=== PATIENT | female | born 1985 | race Caucasian/White ===

== ENCOUNTER 2022-05-04 08:09 | Inpatient (IN) | payer OTHER, MEDICAID ==
[2022-05-04] MEDS ORDERED: Boostrix 0.5 ML (Tdap) VIAL (>/=7 yrs of age) ONE (08:47)
[2022-05-04 09:04] LABS: #Basophils 0.1 thou/uL (0.0-0.2); #Eosinphils 0.1 thou/uL (0.0-0.7); #Lymphocytes 1.9 thou/uL (1.20-3.40); #Monocytes 0.3 thou/uL (0.11-0.59); #Neutrophils 9.9 thou/uL (1.40-6.50); %Basophils 0.7 % (0.0-1.0); %Eosinophils 0.8 % (0.0-10.0); %Lymphocytes 15.5 % (21.0-51.0); %Monocytes 2.7 % (0.0-10.0); %Neutrophils 80.3 % (42.0-75.0); Hemoglobin 15.9 g/dL (12.0-16.0); Mean Corpuscular HGB CONC 34.4 g/dL (32.0-36.0); Mean Corpuscular Volume 98.6 fL (78.0-98.0); Mean Platelet Volume 9.6 fL (7.4-10.4); Platelet Count 148 thou/uL (130-400); RBC Distribution Width 12.2 % (11.5-14.5); Red Blood Cell (RBC) Count 4.69 mill/uL (4.20-5.40); White Blood Cell (WBC) Count 12.3 thou/uL (4.8-10.8)
[2022-05-04 09:22] LABS: BHCG - Serum Negative (NEGATIVE); Pregs Control Background? CLEAR/WHITE (CLR/WHITE); Pregs Control Bar Appear? YES (CONTROL BAR)
[2022-05-04 09:26] LABS: ALT (SGPT) 261 U/L (8-55); AST (SGOT) 591 U/L (5-34); Acetaminophen Less than 10.0 mcg/mL (10.0-30.0); Albumin 4.2 g/dL (3.5-5.0); Alcohol Less than 10 mg/dL (Less than 10); Alkaline Phosphatase 101 U/L (40-110); Anion Gap 23 mmol/L (10-20); BUN (Urea Nitrogen) 10 mg/dL (7.0-18.7); Bilirubin, Total 0.8 mg/dL (0.2-1.2); CK (CPK) 218 U/L (29-168); Calc. Creatinine Clearance 0 mL/min (70-130); Calcium 9.2 mg/dL (7.8-10.44); Carbon Dioxide 16 mmol/L (22-29); Chloride 100 mmol/L (98-107); Estimated GFR 73; Globulin 3.1 g/dL (2.4-3.5); Glucose 479 mg/dL (70-105); Lipase 24 U/L (8-78); Potassium 3.8 mmol/L (3.5-5.1); Protein, Total 7.3 g/dL (6.0-8.3); Salicylate Less than 8.0 mg/dL (15.0-30.0); Sodium 135 mmol/L (136-145)
[2022-05-04] MEDS ORDERED: Lorazepam (BATCHED) 2 MG/ML SYR ONE (09:40)
[2022-05-04] MEDS ORDERED: Lidocaine 5% Patch TD SCH (10:30)
[2022-05-04 12:00] LABS: Lactic Acid 1.8 mmol/L (0.5-2.2)
[2022-05-04 12:02] LABS: Bilirubin Negative (Negative); Blood, Urine 2+ (Negative); Clarity Clear (Clear); Glucose, Urine (Dipstick) Greater than 1000 mg/dL (Negative); Ketone, Urine 80 mg/dL (Negative); Leukocyte Negative Leu/uL (Negative); Nitrite Negative (Negative); Protein, Urine (Dipstick) 70 mg/dL (Neg-Trace); Urobilinogen Normal mg/dL (Less than 2); WBC/HPF 0-3 HPF (0-3)
[2022-05-04 12:03] LABS: Bacteria/HPF 1+ HPF (None Seen); Specific Gravity, Urine 1.059 (1.002-1.036)
[2022-05-04 12:05] LABS: Pregnancy Test - Urine (BHCG) Negative (Negative); Pregu Control Background? CLEAR/WHITE (CLR/WHITE); Pregu Control Bar Appear? YES (CONTROL BAR); Specific Gravity 1.059 (1.002-1.036)
[2022-05-04 12:10] LABS: Amphetamine Not Detected (NotDetected); Barbiturates Screen Not Detected (NotDetected); Benzodiazepine Screen Not Detected (NotDetected); Cocaine Metabolite Screen Not Detected (NotDetected); Methadone Not Detected (NotDetected); Methamphetamine Not Detected (NotDetected); Opiate Screen Not Detected (NotDetected); Oxycodone Screen Not Detected (NotDetected); Phencyclidine (PCP) Not Detected (NotDetected); THC/Cannabinoid Screen Detected (NotDetected); Tricyclic Screen Not Detected (NotDetected)
[2022-05-04] MEDS ORDERED: INSULIN REGULAR IN 0.9 % NACL 100 UNIT/100 ML BAG ONE (12:25)
[2022-05-04] MEDS ORDERED: Ondansetron ODT 4 MG TAB PO PRN (12:52)
[2022-05-04] MEDS ORDERED: Insulin Regular 300 UNITS/3 ML VIAL SC PRN ×2 (12:52)
[2022-05-04] MEDS ORDERED: Morphine 4 MG/ML VIAL SLOW IVP PRN (12:52)
[2022-05-04] MEDS ORDERED: Morphine 2 MG/ML VIAL SLOW IVP PRN (12:52)
[2022-05-04] MEDS ORDERED: hydrALAZINE 20 MG/ML VIAL SLOW IVP PRN (12:52)
[2022-05-04] MEDS ORDERED: Dextrose 5% in Water 1,000 ML IV PRN ×2 (12:52→15:15)
[2022-05-04] MEDS ORDERED: Promethazine HCl 25 MG/ML VIAL IM PRN (12:52)
[2022-05-04] MEDS ORDERED: Dextrose 50% Abboject 50 ML SYRINGE SLOW IVP PRN ×2 (12:52→15:16)
[2022-05-04] MEDS ORDERED: Ondansetron PF 4 MG/2 ML Vial IVP PRN (12:52)
[2022-05-04] MEDS ORDERED: Sodium Chloride 0.9% 1,000 ML IV SCH ×2 (13:00)
[2022-05-04] MEDS ORDERED: Potassium Chloride 40 MEQ in Premix Bag 1 BAG IVPB SCH (13:00)
[2022-05-04 13:24] LABS: Hemoglobin A1c 13.8 % (4.0-6.0)
[2022-05-04 13:28] LABS: Magnesium 1.8 mg/dL (1.6-2.6)
[2022-05-04] MEDS ORDERED: Cyclobenzaprine 10 MG TAB PO PRN (14:02)
[2022-05-04] MEDS ORDERED: traMADol HCl 50 MG TAB PO PRN (14:02)
[2022-05-04] MEDS: traMADol HCl 50 MG TAB PO SCH ×2 (14:38→20:19)
[2022-05-04] MEDS: Acetaminophen 325 MG TAB PO SCH ×2 (14:39→20:21)
[2022-05-04] MEDS: Gabapentin 100 MG CAP PO SCH ×2 (14:39→23:46)
[2022-05-04] MEDS: Potassium Chloride 20 MEQ in Premix Bag 1 BAG IVPB SCH ×2 (14:39→16:28)
[2022-05-04] MEDS ORDERED: HUMULIN R 100 UNITS in Sodium Chloride 0.9% 100 ML IVPB SCH (15:15)
[2022-05-04] MEDS ORDERED: NS 0.9% w/ 20 MEQ KCL 1,000 ML/1,000 ML BAG IV PRN ×2 (15:15)
[2022-05-04] MEDS ORDERED: Insulin Regular 300 UNITS/3 ML VIAL IVP SCH (15:15)
[2022-05-04] MEDS ORDERED: Sodium Chloride 0.9% 1,000 ML IV PRN ×4 (15:15)
[2022-05-04] MEDS ORDERED: D5 1/2 NS w/20 mEq KCL 1,000 ML IV PRN (15:15)
[2022-05-04] MEDS ORDERED: Dextrose 5 %-0.45 % NaCl 1,000 ML IV PRN (15:15)
[2022-05-04] MEDS ORDERED: Electrolyte Replacement Protocol FS PRN (15:30)
[2022-05-04] MEDS ORDERED: Iopamidol-370 76% 500 ML 1 ML ONE (15:40)
[2022-05-04 18:08] LABS: Anion Gap 17 mmol/L (10-20); BUN (Urea Nitrogen) 10 mg/dL (7.0-18.7); Calc. Creatinine Clearance 219 mL/min (70-130); Calcium 8.5 mg/dL (7.8-10.44); Carbon Dioxide 18 mmol/L (22-29); Chloride 111 mmol/L (98-107); Estimated GFR 97; Glucose 200 mg/dL (70-105); Sodium 142 mmol/L (136-145)
[2022-05-04] MEDS: Sodium Chloride 0.9% 1,000 ML IV SCH (19:10)
[2022-05-04] MEDS: Benztropine 1 MG TAB PO SCH (20:22)
[2022-05-04] MEDS: risperiDONE 1 MG TAB PO SCH (20:22)
[2022-05-04] MEDS ORDERED: traZODone HCl 50 MG TAB PO SCH (21:00)
[2022-05-04] MEDS ORDERED: Enoxaparin Sodium 40 MG/0.4 ML SYRINGE SC SCH (21:00)
[2022-05-04] MEDS: Divalproex Sodium DR 500 MG TAB PO SCH (21:38)
[2022-05-04] MEDS: Famotidine/PF 20 mg/2ml Vial SLOW IVP SCH (21:39)
[2022-05-04] MEDS ORDERED: Transdermal Patch Removal TOP SCH (22:30)
[2022-05-05 01:43] LABS: Base Excess (BEa) -6.7 mEq/L (-2.0 to +3.0); Calcium, Ionized (arterial) 1.12 mmol/L (1.12-1.30); Carboxyhemoglobin (COHb) 1.6 gm% (0.0-3.0); O2 Tension (PaO2), arterial 96.7 mmHg (80.0-100.0); pH, Arterial 7.31 (7.35-7.45)
[2022-05-05 01:45] LABS: Puncture Site RRA
[2022-05-05] MEDS: Sodium Chloride 0.9% 1,000 ML IV SCH ×4 (03:01→22:50)
[2022-05-05] MEDS: Acetaminophen 325 MG TAB PO SCH ×4 (03:07→20:19)
[2022-05-05] MEDS: traMADol HCl 50 MG TAB PO SCH ×4 (03:08→20:21)
[2022-05-05 04:20] LABS: Calcium 7.9 mg/dL (7.8-10.44); Chloride 108 mmol/L (98-107); Glucose 299 mg/dL (70-105); Potassium 4.4 mmol/L (3.5-5.1); Sodium 139 mmol/L (136-145)
[2022-05-05 04:21] LABS: Carbon Dioxide 14 mmol/L (22-29)
[2022-05-05 04:23] LABS: Calc. Creatinine Clearance 237 mL/min (70-130); Estimated GFR 107
[2022-05-05 04:24] LABS: BUN (Urea Nitrogen) 10 mg/dL (7.0-18.7)
[2022-05-05 04:25] LABS: Magnesium 1.7 mg/dL (1.6-2.6)
[2022-05-05 04:29] LABS: Anion Gap 18 mmol/L (10-20)
[2022-05-05] MEDS: Levothyroxine Sodium 100 MCG TAB PO SCH (06:34)
[2022-05-05] MEDS: Gabapentin 100 MG CAP PO SCH ×3 (06:45→22:00)
[2022-05-05] MEDS ORDERED: Insulin Regular 300 UNITS/3 ML VIAL SC PRN (07:05)
[2022-05-05] MEDS ORDERED: Magnesium Sulfate 3 GM in Sodium Chloride 0.9% 100 ML IVPB SCH (07:30)
[2022-05-05] MEDS: risperiDONE 1 MG TAB PO SCH ×2 (09:00→20:20)
[2022-05-05] MEDS: Benztropine 1 MG TAB PO SCH (09:00)
[2022-05-05] MEDS: Citalopram 10 MG TAB PO SCH (09:00)
[2022-05-05] MEDS: Divalproex Sodium DR 500 MG TAB PO SCH ×2 (09:00→20:21)
[2022-05-05] MEDS ORDERED: Acetaminophen/Codeine 30-300mg Tablet PO PRN ×2 (09:02→22:18)
[2022-05-05] MEDS: Insulin Glargine 30 UNITS/0.3 ML VIAL SC SCH (09:07)
[2022-05-05] MEDS: Enoxaparin Sodium 30 MG/0.3 ML SYRINGE SC SCH ×2 (09:08→20:19)
[2022-05-05] MEDS: Famotidine/PF 20 mg/2ml Vial SLOW IVP SCH ×2 (09:08→20:22)
[2022-05-05] MEDS: Insulin Regular 300 UNITS/3 ML VIAL SC PRN ×4 (09:09→21:15)
[2022-05-05 10:48] LABS: #Lymphocytes 1.9 thou/uL (1.20-3.40); #Monocytes 0.8 thou/uL (0.11-0.59); #Neutrophils 10.1 thou/uL (1.40-6.50); %Basophils 0.3 % (0.0-1.0); %Eosinophils 0.3 % (0.0-10.0); %Lymphocytes 14.7 % (21.0-51.0); %Monocytes 6.3 % (0.0-10.0); %Neutrophils 78.5 % (42.0-75.0); Hemoglobin 14.3 g/dL (12.0-16.0); Mean Corpuscular HGB CONC 31.7 g/dL (32.0-36.0); Mean Platelet Volume 9.4 fL (7.4-10.4); Platelet Count 127 thou/uL (130-400); RBC Distribution Width 12.1 % (11.5-14.5); Red Blood Cell (RBC) Count 4.45 mill/uL (4.20-5.40); White Blood Cell (WBC) Count 12.8 thou/uL (4.8-10.8)
[2022-05-05 11:14] LABS: Phosphorus 3.2 mg/dL (2.3-4.7)
[2022-05-05] MEDS ORDERED: Cyclobenzaprine 10 MG TAB PO PRN (22:19)
[2022-05-05] MEDS ORDERED: Gabapentin 100 MG CAP PO SCH (22:45)
[2022-05-05] MEDS ORDERED: traZODone HCl 50 MG TAB PO SCH (22:45)
[2022-05-06] MEDS: Insulin Regular 300 UNITS/3 ML VIAL SC PRN ×4 (01:13→17:13)
[2022-05-06] MEDS: Acetaminophen 325 MG TAB PO SCH ×4 (01:43→22:29)
[2022-05-06] MEDS: traMADol HCl 50 MG TAB PO SCH ×2 (01:43→08:17)
[2022-05-06 04:06] LABS: #Eosinphils 0.1 thou/uL (0.0-0.7); #Lymphocytes 1.9 thou/uL (1.20-3.40); #Monocytes 0.6 thou/uL (0.11-0.59); #Neutrophils 6.8 thou/uL (1.40-6.50); %Basophils 0.1 % (0.0-1.0); %Eosinophils 0.8 % (0.0-10.0); %Lymphocytes 20.4 % (21.0-51.0); %Monocytes 6.4 % (0.0-10.0); %Neutrophils 72.3 % (42.0-75.0); Hemoglobin 13.2 g/dL (12.0-16.0); Mean Corpuscular Volume 99.8 fL (78.0-98.0); Mean Platelet Volume 9.5 fL (7.4-10.4); Platelet Count 107 thou/uL (130-400); Red Blood Cell (RBC) Count 4.01 mill/uL (4.20-5.40); White Blood Cell (WBC) Count 9.4 thou/uL (4.8-10.8)
[2022-05-06 04:16] LABS: Anion Gap 17 mmol/L (10-20); BUN (Urea Nitrogen) 10 mg/dL (7.0-18.7); Calc. Creatinine Clearance 254 mL/min (70-130); Calcium 8.4 mg/dL (7.8-10.44); Carbon Dioxide 19 mmol/L (22-29); Chloride 106 mmol/L (98-107); Estimated GFR 115; Glucose 229 mg/dL (70-105); Phosphorus 2.4 mg/dL (2.3-4.7); Potassium 3.9 mmol/L (3.5-5.1); Sodium 138 mmol/L (136-145)
[2022-05-06] MEDS: Levothyroxine Sodium 100 MCG TAB PO SCH (05:15)
[2022-05-06] MEDS ORDERED: Gabapentin 300 MG CAP PO SCH (06:00)
[2022-05-06] MEDS: Enoxaparin Sodium 30 MG/0.3 ML SYRINGE SC SCH (08:16)
[2022-05-06] MEDS: Famotidine/PF 20 mg/2ml Vial SLOW IVP SCH ×2 (08:16→22:11)
[2022-05-06] MEDS: Sodium Chloride 0.9% 1,000 ML IV SCH (08:16)
[2022-05-06] MEDS: Divalproex Sodium DR 500 MG TAB PO SCH ×2 (08:17→22:14)
[2022-05-06] MEDS: Citalopram 10 MG TAB PO SCH (08:17)
[2022-05-06] MEDS: risperiDONE 1 MG TAB PO SCH (08:17)
[2022-05-06] MEDS: Insulin Glargine 30 UNITS/0.3 ML VIAL SC SCH (08:19)
[2022-05-06] MEDS ORDERED: Cyclobenzaprine 10 MG TAB PO PRN (08:27)
[2022-05-06] MEDS ORDERED: Morphine 2 MG/ML VIAL SLOW IVP PRN (08:29)
[2022-05-06] MEDS ORDERED: Insulin Glargine 30 UNITS/0.3 ML VIAL SC SCH ×2 (08:45→09:00)
[2022-05-06] MEDS ORDERED: Enoxaparin Sodium 40 MG/0.4 ML SYRINGE SC SCH (09:00)
[2022-05-06] MEDS: cloNIDine 0.1 MG TAB PO SCH ×2 (11:16→18:47)
[2022-05-06] MEDS ORDERED: cloNIDine 0.1 MG TAB PO SCH ×3 (12:00)
[2022-05-06] MEDS ORDERED: Potassium Phosphate 30 MMOL in Sodium Chloride 0.9% 250 ML 250 ML IVPB SCH (13:30)
[2022-05-06] MEDS: Acetaminophen/Codeine 30-300mg Tablet PO PRN ×2 (17:50→22:24)
[2022-05-06] MEDS ORDERED: risperiDONE 1 MG TAB PO SCH (21:00)
[2022-05-06] MEDS ORDERED: traZODone HCl 50 MG TAB PO SCH (21:00)
[2022-05-06] MEDS: Gabapentin 300 MG CAP PO SCH (22:12)
[2022-05-06] MEDS: traZODone HCl 50 MG TAB PO SCH (22:13)
[2022-05-06] MEDS: Enoxaparin Sodium 40 MG/0.4 ML SYRINGE SC SCH (22:15)
[2022-05-07] MEDS: cloNIDine 0.1 MG TAB PO SCH ×2 (00:42→05:00)
[2022-05-07] MEDS: Acetaminophen 325 MG TAB PO SCH ×4 (04:17→20:01)
[2022-05-07 04:48] LABS: Anion Gap 16 mmol/L (10-20); BUN (Urea Nitrogen) 7 mg/dL (7.0-18.7); Calc. Creatinine Clearance 285 mL/min (70-130); Calcium 8.5 mg/dL (7.8-10.44); Carbon Dioxide 22 mmol/L (22-29); Chloride 104 mmol/L (98-107); Estimated GFR 118; Glucose 189 mg/dL (70-105); Magnesium 1.8 mg/dL (1.6-2.6); Phosphorus 2.4 mg/dL (2.3-4.7); Potassium 3.8 mmol/L (3.5-5.1); Sodium 138 mmol/L (136-145)
[2022-05-07] MEDS: Levothyroxine Sodium 100 MCG TAB PO SCH (06:22)
[2022-05-07] MEDS: Insulin Regular 300 UNITS/3 ML VIAL SC PRN ×2 (06:23→16:05)
[2022-05-07] MEDS: Divalproex Sodium DR 500 MG TAB PO SCH ×2 (08:45→20:00)
[2022-05-07] MEDS: Gabapentin 300 MG CAP PO SCH ×2 (08:45→20:00)
[2022-05-07] MEDS: Famotidine 20 MG TAB PO SCH ×2 (08:45→19:58)
[2022-05-07] MEDS: Polyethylene Glycol 3350 17 GM Packet PO SCH (08:45)
[2022-05-07] MEDS: Citalopram 10 MG TAB PO SCH (08:45)
[2022-05-07] MEDS: Enoxaparin Sodium 40 MG/0.4 ML SYRINGE SC SCH ×2 (08:46→19:59)
[2022-05-07] MEDS: Senokot S 8.6-50 MG TAB PO SCH ×2 (08:48→20:02)
[2022-05-07] MEDS ORDERED: Insulin Glargine 30 UNITS/0.3 ML VIAL SC SCH (09:00)
[2022-05-07] MEDS ORDERED: Ketorolac Tromethamine 30 MG/ML VIAL ONE (09:05)
[2022-05-07] MEDS ORDERED: Ketorolac Tromethamine 30 MG/ML VIAL IVP SCH (09:15)
[2022-05-07] MEDS ORDERED: Furosemide 20 MG/2 ML VIAL SLOW IVP SCH (10:00)
[2022-05-07] MEDS: Ketorolac Tromethamine 30 MG/ML VIAL IVP SCH ×3 (11:15→23:29)
[2022-05-07] MEDS ORDERED: Azithromycin 250 MG TAB PO SCH (11:30)
[2022-05-07 11:40] LABS: ALT (SGPT) 52 U/L (8-55); AST (SGOT) 35 U/L (5-34); Albumin 3.3 g/dL (3.5-5.0); Alkaline Phosphatase 120 U/L (40-110); Bilirubin, Direct 0.5 mg/dL (0.1-0.3); Protein, Total 6.3 g/dL (6.0-8.3)
[2022-05-07] MEDS ORDERED: Magnesium Sulfate 20 GM/WATER 500 ML BAG IVPB SCH (14:30)
[2022-05-07] MEDS ORDERED: Magnesium Sulfate In Water 4 GM in Premix Bag 1 BAG IVPB SCH (14:45)
[2022-05-07] MEDS ORDERED: Albuterol Sulfate 1.25 MG/3 ML NEB ONE (18:08)
[2022-05-07] MEDS: Albuterol Sulfate 2.5 mg/3 ml Neb NEB SCH ×2 (18:13→22:23)
[2022-05-07] MEDS: traZODone HCl 50 MG TAB PO SCH (20:00)
[2022-05-08] MEDS: Acetaminophen 325 MG TAB PO SCH ×4 (02:08→21:01)
[2022-05-08 04:02] LABS: #Eosinphils 0.2 thou/uL (0.0-0.7); #Lymphocytes 1.6 thou/uL (1.20-3.40); #Monocytes 0.6 thou/uL (0.11-0.59); #Neutrophils 4.5 thou/uL (1.40-6.50); %Basophils 0.1 % (0.0-1.0); %Eosinophils 3.1 % (0.0-10.0); %Lymphocytes 23.6 % (21.0-51.0); %Monocytes 8.1 % (0.0-10.0); %Neutrophils 65.2 % (42.0-75.0); Hemoglobin 12.6 g/dL (12.0-16.0); Mean Corpuscular HGB CONC 33.7 g/dL (32.0-36.0); Mean Platelet Volume 9.2 fL (7.4-10.4); Platelet Count 120 thou/uL (130-400)
[2022-05-08 04:03] LABS: ALT (SGPT) 38 U/L (8-55); AST (SGOT) 20 U/L (5-34); Albumin 3.1 g/dL (3.5-5.0); Alkaline Phosphatase 113 U/L (40-110); Anion Gap 14 mmol/L (10-20); BUN (Urea Nitrogen) 12 mg/dL (7.0-18.7); Bilirubin, Direct 0.3 mg/dL (0.1-0.3); Bilirubin, Total 0.5 mg/dL (0.2-1.2); Calc. Creatinine Clearance 278 mL/min (70-130); Calcium 8.7 mg/dL (7.8-10.44); Carbon Dioxide 25 mmol/L (22-29); Chloride 101 mmol/L (98-107); Estimated GFR 116; Glucose 248 mg/dL (70-105); Magnesium 2.2 mg/dL (1.6-2.6); Phosphorus 2.8 mg/dL (2.3-4.7); Potassium 3.4 mmol/L (3.5-5.1); Protein, Total 5.9 g/dL (6.0-8.3); Sodium 137 mmol/L (136-145)
[2022-05-08] MEDS: Insulin Regular 300 UNITS/3 ML VIAL SC PRN ×4 (04:11→23:50)
[2022-05-08] MEDS: Levothyroxine Sodium 100 MCG TAB PO SCH (06:02)
[2022-05-08] MEDS: Ketorolac Tromethamine 30 MG/ML VIAL IVP SCH ×3 (06:02→17:33)
[2022-05-08] MEDS: Albuterol Sulfate 2.5 mg/3 ml Neb NEB SCH ×3 (08:15→20:35)
[2022-05-08] MEDS ORDERED: Potassium Phosphate 30 MMOL in Sodium Chloride 0.9% 250 ML 250 ML IVPB SCH (08:30)
[2022-05-08] MEDS ORDERED: Azithromycin 250 MG TAB PO SCH (09:00)
[2022-05-08] MEDS: Famotidine 20 MG TAB PO SCH ×2 (09:08→21:02)
[2022-05-08] MEDS: Senokot S 8.6-50 MG TAB PO SCH ×2 (09:08→21:03)
[2022-05-08] MEDS: Citalopram 10 MG TAB PO SCH (09:08)
[2022-05-08] MEDS: Metoprolol Tartrate 25 MG TAB PO SCH ×2 (09:09→21:01)
[2022-05-08] MEDS: Divalproex Sodium DR 500 MG TAB PO SCH ×2 (09:09→21:02)
[2022-05-08] MEDS: Polyethylene Glycol 3350 17 GM Packet PO SCH (09:09)
[2022-05-08] MEDS: Gabapentin 300 MG CAP PO SCH ×2 (09:10→21:02)
[2022-05-08] MEDS: Enoxaparin Sodium 40 MG/0.4 ML SYRINGE SC SCH ×2 (09:16→21:01)
[2022-05-08] MEDS: Insulin Glargine 30 UNITS/0.3 ML VIAL SC SCH ×2 (09:16→21:50)
[2022-05-08] MEDS: Ibuprofen 200 MG TAB PO SCH (20:59)
[2022-05-08] MEDS ORDERED: Cefuroxime Axetil 250 MG TAB PO SCH (21:00)
[2022-05-08] MEDS: traZODone HCl 50 MG TAB PO SCH (21:03)
[2022-05-09] MEDS: Acetaminophen 325 MG TAB PO SCH ×5 (02:36→22:31)
[2022-05-09] MEDS: Ibuprofen 200 MG TAB PO SCH ×3 (03:35→22:29)
[2022-05-09] MEDS ORDERED: Insulin Regular 300 UNITS/3 ML VIAL SC SCH (04:00)
[2022-05-09] MEDS: Albuterol Sulfate 2.5 mg/3 ml Neb NEB SCH ×3 (05:43→22:42)
[2022-05-09] MEDS: Acetaminophen/Codeine 30-300mg Tablet PO PRN ×2 (06:34→23:00)
[2022-05-09] MEDS: Levothyroxine Sodium 100 MCG TAB PO SCH (06:35)
[2022-05-09 08:09] LABS: Chloride 102 mmol/L (98-107); Potassium 3.7 mmol/L (3.5-5.1); Sodium 141 mmol/L (136-145)
[2022-05-09 08:10] LABS: Calcium 8.9 mg/dL (7.8-10.44); Glucose 216 mg/dL (70-105)
[2022-05-09 08:12] LABS: Anion Gap 14 mmol/L (10-20); Carbon Dioxide 29 mmol/L (22-29)
[2022-05-09 08:14] LABS: BUN (Urea Nitrogen) 14 mg/dL (7.0-18.7); Calc. Creatinine Clearance 282 mL/min (70-130); Estimated GFR 116
[2022-05-09 08:19] LABS: Phosphorus 4.1 mg/dL (2.3-4.7)
[2022-05-09] MEDS ORDERED: Potassium Phosphate 30 MMOL in Sodium Chloride 0.9% 250 ML 250 ML IVPB SCH (08:30)
[2022-05-09] MEDS: Senokot S 8.6-50 MG TAB PO SCH ×2 (08:56→22:31)
[2022-05-09] MEDS: metFORMIN 500 MG TAB PO SCH ×2 (08:56→17:49)
[2022-05-09] MEDS: Divalproex Sodium DR 500 MG TAB PO SCH ×2 (08:56→22:27)
[2022-05-09] MEDS: Sulfameth/Trimethoprim DS 800-160mg TAB PO SCH ×2 (08:57→22:27)
[2022-05-09] MEDS: Gabapentin 300 MG CAP PO SCH ×2 (08:57→22:27)
[2022-05-09] MEDS: Citalopram 10 MG TAB PO SCH (08:57)
[2022-05-09] MEDS: Enoxaparin Sodium 40 MG/0.4 ML SYRINGE SC SCH ×2 (08:58→22:49)
[2022-05-09] MEDS: Famotidine 20 MG TAB PO SCH ×2 (08:58→22:29)
[2022-05-09] MEDS: Metoprolol Tartrate 25 MG TAB PO SCH ×3 (08:58→23:38)
[2022-05-09] MEDS: Saccharomyces boulardii 250 MG CAP PO SCH (08:58)
[2022-05-09] MEDS: Polyethylene Glycol 3350 17 GM Packet PO SCH (08:59)
[2022-05-09] MEDS: Insulin Glargine 30 UNITS/0.3 ML VIAL SC SCH ×2 (08:59→22:29)
[2022-05-09] MEDS ORDERED: Metoprolol Tartrate 25 MG TAB PO SCH ×2 (10:16→10:30)
[2022-05-09] MEDS: traZODone HCl 50 MG TAB PO SCH (22:28)
[2022-05-09] MEDS: risperiDONE 1 MG TAB PO SCH (22:28)
[2022-05-10] MEDS: Acetaminophen 325 MG TAB PO SCH ×4 (03:08→21:24)
[2022-05-10] MEDS: Ibuprofen 200 MG TAB PO SCH ×3 (06:04→22:45)
[2022-05-10] MEDS: Levothyroxine Sodium 100 MCG TAB PO SCH (06:04)
[2022-05-10] MEDS: Albuterol Sulfate 2.5 mg/3 ml Neb NEB SCH ×3 (06:58→23:12)
[2022-05-10] MEDS: Metoprolol Tartrate 25 MG TAB PO SCH ×2 (09:21→21:22)
[2022-05-10] MEDS: Sulfameth/Trimethoprim DS 800-160mg TAB PO SCH ×2 (09:24→21:21)
[2022-05-10] MEDS: Saccharomyces boulardii 250 MG CAP PO SCH (09:25)
[2022-05-10] MEDS: metFORMIN 500 MG TAB PO SCH ×2 (09:25→16:34)
[2022-05-10] MEDS: Polyethylene Glycol 3350 17 GM Packet PO SCH ×2 (09:26→09:29)
[2022-05-10] MEDS: Divalproex Sodium DR 500 MG TAB PO SCH ×2 (09:26→21:21)
[2022-05-10] MEDS: Citalopram 10 MG TAB PO SCH (09:26)
[2022-05-10] MEDS: Senokot S 8.6-50 MG TAB PO SCH ×2 (09:26→21:24)
[2022-05-10] MEDS: Gabapentin 300 MG CAP PO SCH ×2 (09:26→21:23)
[2022-05-10] MEDS: Famotidine 20 MG TAB PO SCH ×2 (09:26→21:23)
[2022-05-10] MEDS: Enoxaparin Sodium 40 MG/0.4 ML SYRINGE SC SCH ×2 (09:27→21:23)
[2022-05-10] MEDS: Insulin Glargine 30 UNITS/0.3 ML VIAL SC SCH ×2 (09:27→21:22)
[2022-05-10] MEDS ORDERED: risperiDONE 1 MG TAB PO SCH (09:30)
[2022-05-10] MEDS: risperiDONE 1 MG TAB PO SCH ×2 (09:36→21:23)
[2022-05-10] MEDS: Insulin Regular 300 UNITS/3 ML VIAL SC PRN ×2 (12:16→16:34)
[2022-05-10] MEDS ORDERED: Insulin Glargine 30 UNITS/0.3 ML VIAL SC SCH (12:30)
[2022-05-10] MEDS: traZODone HCl 50 MG TAB PO SCH (21:22)
[2022-05-10] MEDS: Acetaminophen/Codeine 30-300mg Tablet PO PRN (21:26)
[2022-05-11] MEDS: Acetaminophen 325 MG TAB PO SCH ×4 (03:15→20:54)
[2022-05-11] MEDS: Ibuprofen 200 MG TAB PO SCH ×3 (05:07→20:55)
[2022-05-11] MEDS: Levothyroxine Sodium 100 MCG TAB PO SCH (05:07)
[2022-05-11] MEDS: Albuterol Sulfate 2.5 mg/3 ml Neb NEB SCH ×3 (06:53→23:18)
[2022-05-11] MEDS: Enoxaparin Sodium 40 MG/0.4 ML SYRINGE SC SCH ×2 (08:06→20:54)
[2022-05-11] MEDS: Insulin Glargine 30 UNITS/0.3 ML VIAL SC SCH ×2 (08:06→20:54)
[2022-05-11] MEDS: Divalproex Sodium DR 500 MG TAB PO SCH ×2 (08:07→20:56)
[2022-05-11] MEDS: risperiDONE 1 MG TAB PO SCH ×2 (08:07→20:56)
[2022-05-11] MEDS: Famotidine 20 MG TAB PO SCH ×2 (08:07→20:55)
[2022-05-11] MEDS: Saccharomyces boulardii 250 MG CAP PO SCH (08:07)
[2022-05-11] MEDS: Senokot S 8.6-50 MG TAB PO SCH ×2 (08:07→20:56)
[2022-05-11] MEDS: Metoprolol Tartrate 25 MG TAB PO SCH ×2 (08:08→20:55)
[2022-05-11] MEDS: Citalopram 10 MG TAB PO SCH (08:08)
[2022-05-11] MEDS: Polyethylene Glycol 3350 17 GM Packet PO SCH (08:08)
[2022-05-11] MEDS: metFORMIN 500 MG TAB PO SCH ×2 (08:08→16:26)
[2022-05-11] MEDS: Gabapentin 300 MG CAP PO SCH ×2 (08:08→20:54)
[2022-05-11] MEDS: Sulfameth/Trimethoprim DS 800-160mg TAB PO SCH ×2 (08:08→20:55)
[2022-05-11] MEDS: Insulin Regular 300 UNITS/3 ML VIAL SC PRN (16:26)
[2022-05-11] MEDS: traZODone HCl 50 MG TAB PO SCH (20:55)
[2022-05-12] MEDS: Acetaminophen 325 MG TAB PO SCH ×4 (03:20→20:46)
[2022-05-12] MEDS: Ibuprofen 200 MG TAB PO SCH ×3 (06:03→22:36)
[2022-05-12] MEDS: Levothyroxine Sodium 100 MCG TAB PO SCH (06:03)
[2022-05-12] MEDS: Albuterol Sulfate 2.5 mg/3 ml Neb NEB SCH ×3 (06:38→22:27)
[2022-05-12] MEDS: Enoxaparin Sodium 40 MG/0.4 ML SYRINGE SC SCH ×2 (08:25→20:54)
[2022-05-12] MEDS: Insulin Glargine 30 UNITS/0.3 ML VIAL SC SCH ×2 (08:25→20:54)
[2022-05-12] MEDS: Divalproex Sodium DR 500 MG TAB PO SCH ×2 (08:25→20:53)
[2022-05-12] MEDS: Sulfameth/Trimethoprim DS 800-160mg TAB PO SCH ×2 (08:26→20:54)
[2022-05-12] MEDS: Gabapentin 300 MG CAP PO SCH ×2 (08:26→20:53)
[2022-05-12] MEDS: Citalopram 10 MG TAB PO SCH (08:26)
[2022-05-12] MEDS: Senokot S 8.6-50 MG TAB PO SCH ×2 (08:26→20:54)
[2022-05-12] MEDS: Metoprolol Tartrate 25 MG TAB PO SCH ×2 (08:26→20:54)
[2022-05-12] MEDS: Famotidine 20 MG TAB PO SCH ×2 (08:26→20:47)
[2022-05-12] MEDS: Saccharomyces boulardii 250 MG CAP PO SCH (08:27)
[2022-05-12] MEDS: metFORMIN 500 MG TAB PO SCH ×2 (08:27→16:42)
[2022-05-12] MEDS: risperiDONE 1 MG TAB PO SCH ×2 (08:27→20:54)
[2022-05-12] MEDS: Polyethylene Glycol 3350 17 GM Packet PO SCH (08:27)
[2022-05-12] MEDS: traZODone HCl 50 MG TAB PO SCH (20:54)
[2022-05-13] MEDS: Albuterol Sulfate 2.5 mg/3 ml Neb NEB SCH ×2 (06:22→14:55)
[2022-05-13] MEDS: Acetaminophen 325 MG TAB PO SCH ×4 (06:50→20:28)
[2022-05-13] MEDS: Levothyroxine Sodium 100 MCG TAB PO SCH (06:50)
[2022-05-13] MEDS: Ibuprofen 200 MG TAB PO SCH ×3 (06:50→20:57)
[2022-05-13] MEDS: Sulfameth/Trimethoprim DS 800-160mg TAB PO SCH ×2 (09:12→20:30)
[2022-05-13] MEDS: Gabapentin 300 MG CAP PO SCH ×2 (09:12→20:56)
[2022-05-13] MEDS: metFORMIN 500 MG TAB PO SCH ×2 (09:12→17:22)
[2022-05-13] MEDS: Divalproex Sodium DR 500 MG TAB PO SCH ×2 (09:13→20:31)
[2022-05-13] MEDS: Citalopram 10 MG TAB PO SCH (09:13)
[2022-05-13] MEDS: Famotidine 20 MG TAB PO SCH ×2 (09:13→20:31)
[2022-05-13] MEDS: Saccharomyces boulardii 250 MG CAP PO SCH (09:13)
[2022-05-13] MEDS: Senokot S 8.6-50 MG TAB PO SCH ×2 (09:14→20:37)
[2022-05-13] MEDS: Polyethylene Glycol 3350 17 GM Packet PO SCH (09:14)
[2022-05-13] MEDS: Metoprolol Tartrate 25 MG TAB PO SCH ×2 (09:15→20:31)
[2022-05-13] MEDS: risperiDONE 1 MG TAB PO SCH ×2 (09:15→20:31)
[2022-05-13] MEDS: Insulin Glargine 30 UNITS/0.3 ML VIAL SC SCH (09:16)
[2022-05-13] MEDS: Enoxaparin Sodium 40 MG/0.4 ML SYRINGE SC SCH ×2 (09:16→20:32)
[2022-05-13] MEDS ORDERED: Insulin Glargine 30 UNITS/0.3 ML VIAL SC SCH ×2 (11:15→21:00)
[2022-05-13 12:35] LABS: Free T4 (Free Thyroxine) 0.69 ng/dL (0.70-1.48); Thyroid Stimulating Hormone 66.8943 uIU/mL (0.35-4.94)
[2022-05-13] MEDS: traZODone HCl 50 MG TAB PO SCH (20:30)
[2022-05-14] MEDS: Albuterol Sulfate 2.5 mg/3 ml Neb NEB SCH ×4 (01:22→18:41)
[2022-05-14] MEDS: Acetaminophen 325 MG TAB PO SCH ×4 (02:03→20:56)
[2022-05-14] MEDS: Ibuprofen 200 MG TAB PO SCH ×3 (05:44→20:56)
[2022-05-14] MEDS: Levothyroxine Sodium 100 MCG TAB PO SCH (05:45)
[2022-05-14] MEDS: Famotidine 20 MG TAB PO SCH ×2 (09:09→20:57)
[2022-05-14] MEDS: metFORMIN 500 MG TAB PO SCH ×2 (09:09→18:12)
[2022-05-14] MEDS: risperiDONE 1 MG TAB PO SCH ×2 (09:10→20:57)
[2022-05-14] MEDS: Divalproex Sodium DR 500 MG TAB PO SCH ×2 (09:10→20:57)
[2022-05-14] MEDS: Saccharomyces boulardii 250 MG CAP PO SCH (09:10)
[2022-05-14] MEDS: Sulfameth/Trimethoprim DS 800-160mg TAB PO SCH (09:10)
[2022-05-14] MEDS: Enoxaparin Sodium 40 MG/0.4 ML SYRINGE SC SCH ×2 (09:10→20:58)
[2022-05-14] MEDS: Citalopram 10 MG TAB PO SCH (09:10)
[2022-05-14] MEDS: Insulin Glargine 30 UNITS/0.3 ML VIAL SC SCH ×2 (09:11→20:58)
[2022-05-14] MEDS: Gabapentin 300 MG CAP PO SCH ×2 (09:11→20:57)
[2022-05-14] MEDS: Senokot S 8.6-50 MG TAB PO SCH ×2 (09:12→20:57)
[2022-05-14] MEDS: Metoprolol Tartrate 25 MG TAB PO SCH ×2 (09:12→20:56)
[2022-05-14] MEDS: Polyethylene Glycol 3350 17 GM Packet PO SCH (09:12)
[2022-05-14] MEDS: traZODone HCl 50 MG TAB PO SCH (20:58)
[2022-05-15] MEDS: Acetaminophen 325 MG TAB PO SCH ×4 (03:51→22:08)
[2022-05-15] MEDS: Ibuprofen 200 MG TAB PO SCH ×3 (06:09→22:11)
[2022-05-15] MEDS: Levothyroxine Sodium 100 MCG TAB PO SCH (06:09)
[2022-05-15] MEDS: Albuterol Sulfate 1.25 MG/3 ML NEB NEB SCH ×3 (06:52→22:21)
[2022-05-15] MEDS: Famotidine 20 MG TAB PO SCH ×2 (09:27→22:11)
[2022-05-15] MEDS: Citalopram 10 MG TAB PO SCH (09:27)
[2022-05-15] MEDS: Divalproex Sodium DR 500 MG TAB PO SCH ×2 (09:27→22:11)
[2022-05-15] MEDS: metFORMIN 500 MG TAB PO SCH ×2 (09:27→18:16)
[2022-05-15] MEDS: risperiDONE 1 MG TAB PO SCH ×2 (09:27→22:11)
[2022-05-15] MEDS: Gabapentin 300 MG CAP PO SCH ×2 (09:28→22:10)
[2022-05-15] MEDS: Insulin Glargine 30 UNITS/0.3 ML VIAL SC SCH ×2 (09:28→22:10)
[2022-05-15] MEDS: Senokot S 8.6-50 MG TAB PO SCH ×2 (09:29→22:12)
[2022-05-15] MEDS: Enoxaparin Sodium 40 MG/0.4 ML SYRINGE SC SCH ×2 (09:29→22:10)
[2022-05-15] MEDS: Polyethylene Glycol 3350 17 GM Packet PO SCH (09:29)
[2022-05-15] MEDS: Metoprolol Tartrate 25 MG TAB PO SCH ×2 (09:29→22:10)
[2022-05-15 14:11] VITALS: BMI 57.6
[2022-05-15] MEDS: traZODone HCl 50 MG TAB PO SCH (22:10)
[2022-05-16] MEDS: Acetaminophen 325 MG TAB PO SCH ×4 (02:26→22:24)
[2022-05-16] MEDS: Ibuprofen 200 MG TAB PO SCH ×3 (06:16→22:23)
[2022-05-16] MEDS: Levothyroxine Sodium 100 MCG TAB PO SCH (06:17)
[2022-05-16] MEDS: Albuterol Sulfate 1.25 MG/3 ML NEB NEB SCH ×3 (06:46→22:06)
[2022-05-16] MEDS: Gabapentin 300 MG CAP PO SCH ×2 (09:05→22:24)
[2022-05-16] MEDS: metFORMIN 500 MG TAB PO SCH ×2 (09:05→16:49)
[2022-05-16] MEDS: Citalopram 10 MG TAB PO SCH (09:06)
[2022-05-16] MEDS: Famotidine 20 MG TAB PO SCH ×2 (09:06→22:23)
[2022-05-16] MEDS: Metoprolol Tartrate 25 MG TAB PO SCH ×2 (09:06→22:26)
[2022-05-16] MEDS: Divalproex Sodium DR 500 MG TAB PO SCH ×2 (09:06→22:24)
[2022-05-16] MEDS: Senokot S 8.6-50 MG TAB PO SCH ×2 (09:07→22:26)
[2022-05-16] MEDS: Enoxaparin Sodium 40 MG/0.4 ML SYRINGE SC SCH ×2 (09:07→22:25)
[2022-05-16] MEDS: Insulin Glargine 30 UNITS/0.3 ML VIAL SC SCH ×2 (09:07→22:25)
[2022-05-16] MEDS: Polyethylene Glycol 3350 17 GM Packet PO SCH (09:07)
[2022-05-16] MEDS: risperiDONE 1 MG TAB PO SCH ×2 (09:10→22:23)
[2022-05-16 15:33] VITALS: TEMP 98.9
[2022-05-16] MEDS: traZODone HCl 50 MG TAB PO SCH (22:24)
[2022-05-17] MEDS: Acetaminophen 325 MG TAB PO SCH ×2 (02:47→11:36)
[2022-05-17] MEDS: Levothyroxine Sodium 100 MCG TAB PO SCH (06:10)
[2022-05-17] MEDS: Ibuprofen 200 MG TAB PO SCH (06:10)
[2022-05-17] MEDS: Albuterol Sulfate 1.25 MG/3 ML NEB NEB SCH (07:30)
[2022-05-17 08:21] VITALS: BP 111/76
[2022-05-17] MEDS: Divalproex Sodium DR 500 MG TAB PO SCH (08:53)
[2022-05-17] MEDS: Enoxaparin Sodium 40 MG/0.4 ML SYRINGE SC SCH (08:53)
[2022-05-17] MEDS: metFORMIN 500 MG TAB PO SCH (08:53)
[2022-05-17] MEDS: Citalopram 10 MG TAB PO SCH (08:54)
[2022-05-17] MEDS: Metoprolol Tartrate 25 MG TAB PO SCH (08:54)
[2022-05-17] MEDS: Famotidine 20 MG TAB PO SCH (08:54)
[2022-05-17] MEDS: Gabapentin 300 MG CAP PO SCH (08:54)
[2022-05-17] MEDS: Senokot S 8.6-50 MG TAB PO SCH (08:54)
[2022-05-17] MEDS: risperiDONE 1 MG TAB PO SCH (08:54)
[2022-05-17] MEDS: Polyethylene Glycol 3350 17 GM Packet PO SCH (11:37)
[2022-05-17] MEDS: Insulin Glargine 30 UNITS/0.3 ML VIAL SC SCH (11:37)
== END 2022-05-17 09:15 | DRG 963 ==
LOC: ERS 08:09 → IMCU/EMU 13:59 → SURG A 05-09 18:50
PROVIDERS: ADMIT Surgery; ATTEND Surgery
PROC: 5A09357 Assistance with Respiratory Ventilation, Less than 24 Consecutive Hours, Continuous Positive Airway Pressure (ICD-10-PCS; principal; 2022-05-05)
DX: S27.321A Contusion of lung, unilateral, initial encounter (principal); E11.10 Type 2 diabetes mellitus with ketoacidosis without coma; S32.110A Nondisplaced Zone I fracture of sacrum, initial encounter for closed fracture; J18.9 Pneumonia, unspecified organism; S22.018A Other fracture of first thoracic vertebra, initial encounter for closed fracture; S22.43XA Multiple fractures of ribs, bilateral, initial encounter for closed fracture; Z68.43 Body mass index [BMI] 50.0-59.9, adult; Z20.822 Contact with and (suspected) exposure to COVID-19; E03.9 Hypothyroidism, unspecified; F41.9 Anxiety disorder, unspecified; F31.9 Bipolar disorder, unspecified; F20.9 Schizophrenia, unspecified; G47.33 Obstructive sleep apnea (adult) (pediatric); F17.210 Nicotine dependence, cigarettes, uncomplicated; F12.10 Cannabis abuse, uncomplicated; E66.01 Morbid (severe) obesity due to excess calories; B95.61 Methicillin susceptible Staphylococcus aureus infection as the cause of diseases classified elsewhere; J98.4 Other disorders of lung; E83.39 Other disorders of phosphorus metabolism; E87.6 Hypokalemia; E83.42 Hypomagnesemia; Z78.1 Physical restraint status; Y92.410 Unspecified street and highway as the place of occurrence of the external cause; Z99.89 Dependence on other enabling machines and devices; Z79.899 Other long term (current) drug therapy; Z79.890 Hormone replacement therapy; Z79.84 Long term (current) use of oral hypoglycemic drugs
CPT/HCPCS: 36415; 36416; 36600; 70450; 71045; 71260; 72125; 72170; 74177; 80048; 80053; 80076; 80306; 80307; 81003; 81015; 81025; 82010; 82550; 82805; 83036; 83605; 83690; 83735; 83880; 84100; 84439; 84443; 84484; 84703; 85025; 86850; 86900; 86901; 87070; 87077; 87186; 87205; 90471; 90715; 93005; 93010; 93306; 93970; 94640; 94660; 96374; G0390; J1650; J1815; J1885; J1940; J2060; J3475; J3480; J3490; J7050; J7611; Q9967; S0028; U0003; U0005